=== PATIENT | female | born 1985 | race Caucasian/White ===

== ENCOUNTER 2018-09-02 13:58 | Outpatient (CLI) | payer BC ==
--- NOTE | 2018-09-02 15:48 | ULT ---
RENAL ULTRASOUND: 09/02/18 INDICATIONS: Left flank pain. History of renal stones. Right kidney measures 10.0 cm in length. The right kidney is unremarkable. The left kidney measures 10.3 cm in length. There is moderate left hydronephrosis. The bladder is contracted and not adequately evaluated. There is a focal echogenicity at the left UVJ which may represent a calculus. Consider CT scan or IVP to further evaluate. IMPRESSION: Left hydronephrosis. Question calculus at the left UVJ. POS: MICHEAL
== END 2018-09-02 13:59 | disposition home or self-care (01) ==
LOC: SCSULT 13:58
PROVIDERS: ATTEND Family Medicine
DX: R10.9 Unspecified abdominal pain (principal); N13.30 Unspecified hydronephrosis
CPT/HCPCS: 76770

== ENCOUNTER 2018-09-07 11:40 | Outpatient (CLI) | payer BC ==
--- NOTE | 2018-09-07 13:14 | CT ---
CT ABDOMEN AND PELVIS WITHOUT CONTRAST: 09/07/2018 PROVIDED CLINICAL HISTORY: Flank pain and abnormal ultrasound. COMPARISON: No CT comparisons. FINDINGS: The visualized lung bases are free of significant opacity. There is minimal left hydronephrosis and left hydroureter. There is a 6 mm calculus present within t he urinary bladder. No additional urinary tract calculi are evident. The solid abdominal organs are suboptimally evaluated in the absence of IV contrast material, but dem onstrate an otherwise unremarkable CT appearance. There is no bowel dilatation, inflammatory fat stranding, free fluid, or lymph node enlargement appar ent. The appendix appears normal. The osseous structures demonstrate no concerning lytic or blastic lesions. IMPRESSION: 1. 6 mm urinary bladder calculus. 2. Minimal residual left hydronephrosis and hydroureter. POS: C
== END 2018-09-07 11:41 | disposition home or self-care (01) ==
LOC: CT 11:40
PROVIDERS: ATTEND Family Medicine
DX: N20.1 Calculus of ureter (principal); N21.0 Calculus in bladder; N13.30 Unspecified hydronephrosis; N13.4 Hydroureter
CPT/HCPCS: 74176; 81001; 87086